=== PATIENT | female | born 1940 | race Caucasian/White ===

== ENCOUNTER → 2019-11-12 | Outpatient (CLI) | payer MEDICARE, OTHER ==
[~2019-11-12] MED LIST: ALEN70 PO; ATOR20 PO; BUSP10 PO; CITA20 PO; HYDCHL12.5 PO; LO-DOSE ASPIRIN81 MG PO; Prilosec Otc20 MG PO; VITAMIN C; Zantac150 MG PO; [UNRECOGNIZED DRUG - OTHER]
== END ==
LOC: LAB SHORT 17:00 → LAB UCHC 17:00
DX: R19.5 Other fecal abnormalities (principal)
CPT/HCPCS: 87177; 87209

== ENCOUNTER → 2019-11-20 | Outpatient (CLI) | payer MEDICARE, OTHER | LOC: LAB UCHC 05:30 → LAB SHORT 05:30 → LAB FUT 10-08 11:20 | DX: R19.5 Other fecal abnormalities (principal) | CPT/HCPCS: 87015; 87045; 87046; 87205; 87493; 87899 ==